=== PATIENT | female | born 1955 | race Caucasian/White ===

== ENCOUNTER 2019-10-05 05:19 | Observation (INO) | payer SELFPAY ==
[2014-07-02 09:27] VITALS: BMI 29.9
[2019-10-05] VITALS (10 sets, daily range): BP systolic 129–138; BP diastolic 70–73; PULSE 75–95; RESP 15–18; TEMP 36.9–37.3; O2SAT 96–98; BMI 26.0
--- NOTE | 2019-10-05 05:22 | HP.PCM_ITS ---
Problem List (1) Back pain Status: Acute Qualifiers: Back pain location: thoracic back pain Chronicity: acute Back pain laterality: midline Qualified Code(s): M54.6 - Pain in thoracic spine History of Present Illness Date of Admission: 10/05/19 Chief Complaint: back pain The patient is a 64 year old F developed back pain this past Monday. Not associated with any particular activity nor injury. Back pain was in her upper back and did not radiate. States that it would get worse when she would exert herself. Denied any chest pain. Earlier this morning, patient developed worsening of her back pain but was associated with chills, paresthesias in her feet and just not feeling well. Patient has had back pain before related with vertebral fractures due to her osteopenia but this does not feel like that. She went to an outside hospital and was evaluated. Patient on Monday, underwent a colonoscopy with removal of polyps. She did have an abdomen and pelvis CT that was negative for any perforation. The ER doctor informed me that the heart score was 4. Patient did receive aspirin at the outside facility. [] Past Medical History Medical History: Medical History (Last Updated 10/05/19 @ 05:24 by Karlos Alcantara DO) Osteopenia M85.80 Allergies levofloxacin [From Levaquin] Allergy (Verified 07/02/14 09:34) Hives meperidine HCl [From Demerol] Allergy (Verified 07/02/14 09:34) Vomiting Home Medications: Ambulatory Orders Medication Instructions Recorded Omeprazole 20 mg PO DAILY 07/02/14 Lives: Spouse/ Significant Other Smoking Status: Never smoker Tobacco Use: Non-smoker Alcohol: None Drugs: None - *Family History Paternal History Items: Heart Disease Review of Systems Constitutional: Reports: Chills. Denies: Anorexia, Fever, Malaise, Weakness Eyes: Denies: Blurred vision, Double vision HEENT: Denies: Head Aches, Sinus Congestion, Sinus Drainage Cardiovascular: Denies: Chest Pain, Palpitations Respiratory: Denies: Cough, Shortness of breath at rest, Sputum production Gastrointestinal: Denies: Abdominal Pain, Nausea, Vomiting Genitourinary: Denies: Dysuria Musculoskeletal: Denies: Joint Pain, Joint Tenderness Skin: Reports: Rash - Had a rash earlier this week related with a patch that she had had on her back for when she underwent a colonoscopy.. Denies: Dryness Neurological: Denies: Numbness, Tingling, Focal weakness Psychiatric: Denies: Anxiety, Depression Endocrine: Denies: Change in Body Habitus, Heat/ Cold Intolerance Hematologic/ Lymphatic: Denies: Easy Bruising, Easy Bleeding, Hx of blood clot Comment: All review systems are otherwise negative except for as mentioned above and in the HPI. VTE Information - Inpt Only VTE Present on Admission: No VTE Mechan Device Prophylaxis: None VTE Pharm Prophylaxis ordered?: No Reason prophylaxis not ordered:: Procedure Not Indicated Patient Problems: Active and Suspected Problems (Last Updated 10/05/19 @ 05:24 by Karlos Alcantara DO) Back pain (Acute) - Physical Exam Vitals/I&O's: Weight: 60.5 kg Body Mass Index (BMI) 26.0 Finger Stick Blood Glucose 102 General: Alert, Cooperative, No apparent distress, Well developed, Well zay shed HEENT: Atraumatic, Normocephalic Oral: Moist Mucosa, No Gingival or Mucosal Lesions/ Ulcerations Neck: No Nodes, Trachea Midline Lungs: Clear to auscultation, Normal air movement, No rhonchi, No wheeze, No rales Cardiovascular: Regular rate, Regular Rhythm, Normal S1, Normal S2, No murmurs Abdomen: Bowel Sounds Present, Soft, Non Tender, Non-Distended, No Hepato- splenomegaly Extremities: No edema, No Calf Tenderness Skin: No rashes, No breakdown Musculoskeletal: No Muscle Wasting, - - Reproducible midline tenderness along the mid thoracic region but also laterally over to the left. Psych/Mental Status: Normal Affect, Appropriate Labs: BMP: Sodium 144, potassium 3.5, creatinine 0.7. Magnesium 1.7. Troponin 0 0.02 which is within the normal limits of [facility]. CBC: White count 10.4, hemoglobin 1.9, platelets 245 EKG personally reviewed and showed normal sinus rhythm with out any acute changes. CT abdomen pelvis was unremarkable Chest x-ray personally reviewed and showed normal airways. No infiltrate no pulmonary edema. No pneumothorax Assessment/Plan All Active Problems (Last Updated 10/05/19 @ 05:24 by Karlos Alcantara DO) Back pain (Acute) 1. Back pain * May be musculoskeletal, however she did have some atypical symptoms with it getting worse with exertion and the chills and diaphoresis that she had. Additionally patient's blood pressure was very high when she had checked it during this episode at 180/80. * My calculated heart score is 3 which does not suggest admission however the patient has been transferred here for this to be a cardiac evaluation so I will commence with a stress test. I informed the patient that if the stress test cannot be performed today I do not feel it necessary for her to stay until Monday to get that done unless something happens in the interim based on her symptoms or if her troponins become elevated. * We will check a thoracic spine x-ray to see if there is any evidence of a compression fracture even her history of previous vertebral fractures and osteopenia. * Will continue with aspirin * Cycle troponins and check a lipid panel 2. VTE prophylaxis: Not indicated as patient is low risk given the observation status. Code Visit OBSV E&M: 80293 Initial observation care L2
--- NOTE | 2019-10-05 05:47 | RAD_ITS ---
STUDY: X-RAY - THORACIC SPINE REASON FOR EXAM: Female, 64 years old. Upper back pain. TECHNIQUE: 3 view(s) of the thoracic spine were obtained. COMPARISON: None. FINDINGS: Normal kyphosis of the thoracic spine. There is no substantial scoliosis. There is demineralization of the thoracic spine with endplate spondylosis. There is multilevel disc space narrowing of the thoracic spine. No acute fracture. The soft tissue structures are unremarkable. RAD/Thoracic Spine 3 Views IMPRESSION: Diffuse osteopenia along with mild degenerative disease as described above. No acute fracture or subluxation. Electronically Signed: Justina Birmingham MD at 7:23 EST , Service support ,
[2019-10-05] MEDS: 0.9% Saline Lock 10 ML Syringe IV (08:23)
[2019-10-05] MEDS: Ondansetron 4 MG/2 ML Vial IV (08:23)
[2019-10-05] MEDS: Aspirin E.C. 81 MG Tablet PO (08:23)
[2019-10-05] MEDS: Pantoprazole Sodium 20 MG Tablet PO (08:23)
--- NOTE | 2019-10-05 10:34 | STRESSREP ---
Stress Test Report Pharmacologic myocardial perfusion stress test. 64-year-old lady with a history of atypical chest pain. Stress protocol: Resting EKG demonstrates normal sinus rhythm with a rate of 81 bpm normal intervals are noted. The resting blood pressure is 148/62 mmHg. 0.4 mg of regadenoson was infused per usual protocol. Continuous paid search analyst was performed. Patient maintained sinus rhythm throughout the recording. At rest there were no ST or T wave changes noted suggest abnormal flow reserve. The maximum heart rate attained was 129 bpm which was 82% of maximum predicted heart rate the maximum workload was [address] or T wave changes were noted. Myocardial perfusion protocol. 12.0 mCi of technetium 99m sestamibi was injected at rest. 0.4 mg of adenosine was infused per usual protocol peak infusion 35.8 mCi of technetium 99m sestamibi was injected stress images were obtained stress and rest images were reconstructed and compared in the short axis vertical and horizontal long axis. Gated images were also obtained per Perfusion SPECT analysis: Review of the stress images demonstrate normal uptake of tracer noted in all areas of myocardium the resting images similar demonstrate normal uptake of tracer noted in all areas of the myocardium. No areas of reversibility are noted suggest ischemia. No previous infarct is noted. Gated SPECT analysis: The gated ejection fraction is 62%. Conclusion: Normal pharmacologic myocardial perfusion stress test. Preserved ejection fraction.
[2019-10-05 10:48] LABS: D-Dimer Quantitative (DVT/PE) 0.68 FEU/ug/m (0.27-0.49)
--- NOTE | 2019-10-05 11:03 | CT_ITS ---
STUDY: CT THORACIC SPINE WITHOUT CONTRAST REASON FOR EXAM: Female, 64 years old. Back pain RADIATION DOSAGE (If Supplied By Facility): CTDIvol = ( 18.77 ) mGy, DLP = ( 638.95 ) mGycm TECHNIQUE: The patient was scanned in a multi detector CT scanner. High resolution imaging was performed. Images were obtained through the thoracic spine. Sagittal and coronal images were reconstructed. Individualized dose optimization techniques were used for this CT. COMPARISON: None available. FINDINGS: There is no evidence of fracture or dislocation in the thoracic spine. The vertebral body heights are well-maintained. There are mild degenerative changes with disc space narrowing and anterior osteophytes. This is most pronounced at T7/T8 T8/T9 and T9/T10. The visualized paraspinal soft tissues are within normal limits. CT/Spine Thoracic without Contras IMPRESSION: No fracture or dislocation in the thoracic spine. Mild degenerative change. Electronically Signed: Hill Jara, at 13:30 EST Tel , Service support ,
--- NOTE | 2019-10-05 12:14 | PCM.PN.BLA ---
Progress Note Patient was directly admitted from outside facility for mid back pain. There was no clear etiology identified. Patient underwent recent colonoscopy and upper EGD. CT abdomen and pelvis with IV contrast done at the outside facility this morning at around 2 AM and showed no acute findings. Pain is atypical, no underlying trauma or mechanical fall. Thoracic spine x-ray showed no acute fractures or dislocations. Her vital signs are stable. Routine blood work was unremarkable. EKG showed no acute ischemic changes. Troponin was minimally elevated at 0.07 this morning. It was normal at the outside facility. She underwent nuclear stress test this morning and that showed no evidence of stress-induced myocardial ischemia. CT scan lumbar spine done. D-dimer was elevated but CTA chest cannot be done because patient received IV contrast at 2 AM this morning. Plan: IV fluids, Mucomyst twice daily, CTA chest tonight at 10 PM, repeat BMP tomorrow morning, awaiting CT thoracic spine report. STROKE Vital Signs/Narrative: Vital Signs Temp Pulse Resp BP Pulse Ox 10/05/19 11:03 80 10/05/19 10:14 98.5 F 91 16 138/70 H 98
[2019-10-05] MEDS: 0.9% Normal Saline 1,000 ML 100 ML IV ×2 (12:42→21:37)
[2019-10-05] MEDS: Acetylcysteine (Mucomyst Oral) 20% SOLN 1200 MG PO ×2 (13:25→21:35)
--- NOTE | 2019-10-05 15:50 | EKG12_ITS ---
Test Reason : CP ADMISSION Blood Pressure : / mmHG Vent. Rate : 084 BPM Atrial Rate : 084 BPM P-R Int : 166 ms QRS Dur : 072 ms QT Int : 364 ms P-R-T Axes : 056 017 042 degrees QTc Int : 430 ms Normal sinus rhythm Normal ECG When compared with ECG of 02-JUL-2014 09:27, Premature supraventricular complexes are no longer Present Vent. rate has decreased BY [address] elevation now present in Inferior leads ST elevation has replaced ST depression in Lateral leads Confirmed by FRANCISCO JAVIER HARP ([id number]), marketing editor LES MCKENNA ([id number]) on 10/15/2019 10:13:46 AM Referred By: MILTON Confirmed By:FRANCISCO JAVIER HARP
[2019-10-06 02:59] VITALS: PULSE 79
[2019-10-06 03:40] VITALS: BP 104/55; PULSE 80; RESP 18; TEMP 36.9; O2SAT 95
[2019-10-06 06:07] LABS: Absolute Lymphocyte Count 2.14 X10^3/uL (0.83-4.51); Basophil# 0.03 X10^3/uL; Basophil% 0.5 % (0-1); Eosinophils% 3.5 % (0-5); Hematocrit 37.6 % (37-47); Hemoglobin 11.6 g/dL (12.0-15.0); Lymphocyte # 2.14 X10^3/ul (4.0); Mean Corp Hgb Conc 30.9 g/dL (32-36); Mean Corpuscular Hgb 26.8 pg (27.0-32.0); Mean Corpuscular Volume 86.8 fL (81-99); Mean Platelet Vol. 9.5 fl (6.2-12.0); Monocyte# 0.43 X10^3/uL; Monocyte% 7.4 % (0-10); NRBC Flagged by Analyzer 0 % (0-5); Neutrophil # 2.98 X10^3/uL (2.7-7.7); Neutrophil % 51.4 % (47-70); Platelet Count 229 K/mm3 (150-450); RBC Distribution Width CV 13.2 % (11.6-14.6); RBC Distribution Width SD 42.4 fl (35.1-43.9); Red Blood Count 4.33 M/mm3 (4.2-5.4); White Blood Count 5.8 K/mm3 (4.4-11.0)
[2019-10-06 06:23] LABS: Anion Gap 7 (5-15); BUN 9 mg/dL (7-18); BUN/Creat Ratio 12.1 RATIO (10-20); Calcium,Total 8.2 mg/dL (8.5-10.1); Chloride 111 mmol/L (98-107); Creatinine, Serum 0.74 mg/dL (0.55-1.02); EST Glomerular Filtration Rate 84 mL/min (>60); Est Glom Filt Rate - Afr Amer 101 mL/min (>60); Estimated Creatinine Clearance 55.17 ml/min; Glucose 97 mg/dL (74-106); Sodium Level 143 mmol/L (136-145)
[2019-10-06 06:56] VITALS: PULSE 74
[2019-10-06] MEDS: Aspirin E.C. 81 MG Tablet PO (07:34)
[2019-10-06 07:38] LABS: AST(SGOT) 13 U/L (15-37); Alanine Aminotransfer ALT/SGPT 14 U/L (13-56); Albumin, Serum 2.7 g/dL (3.2-5.0); Alkaline Phosphatase 53 U/L (45-117); Bilirubin, Direct 0.07 mg/dL (0.00-0.30); Globulin 3.4 g/dL (2.2-4.2); Lipase 37 U/L (73-393); Protein, Total 6.1 g/dL (6.4-8.2)
--- NOTE | 2019-10-06 08:16 | DCINST_ITS ---
- Discharge Diagnoses Current Active Problems: Current Active and Chronic Problems (Last Updated 10/05/19 @ 05:24 by Karlos Alcantara DO) Back pain (Acute) You will use the following diet at home:: Regular Your food should be the consistency of: Regular Discharge Activity: Return to Normal Activity Weight Bearing Status: Full weight bearing Call your doctor if you observe: Fever of 101 or Higher, Shortness of breath, D izziness, Fainting spells, Chest pain, Increased palpitations (irregular heartbeat), Uncontrolled pain Allergies/Adverse Reactions: Allergies levofloxacin [From Levaquin] Allergy (Verified 07/02/14 09:34) Hives meperidine HCl [From Demerol] Allergy (Verified 07/02/14 09:34) Vomiting Medications to take at Discharge Omeprazole 20 mg PO DAILY 07/02/14 Polyethylene Glycol 3350 [Miralax] 17 gm PO DAILY 10/05/19 Primary Care Physician: Fransisca Jones PA [Primary Care Provider] - Please follow up with your Primary Care Physician in: 2-4 weeks. Test Results: Test results from this visit will be discussed in further detail at your follow- up appointment, if applicable.
[2019-10-06 09:05] VITALS: BP 137/68; PULSE 79; RESP 16; TEMP 37.1; O2SAT 98
[2019-10-06] MEDS: Pantoprazole Sodium 20 MG Tablet PO (09:11)
--- NOTE | 2019-10-06 11:03 | PCM.DC.SUM ---
Discharge Date and Diagnosis Date of Admission: 10/05/19 Date of Discharge: 10/06/19 - Primary Discharge Diagnosis #1 atypical mid back pain, unclear etiology. #2 minimally elevated troponin, no clear etiology. #3 elevated d-dimer, PE and dissection ruled out. Hospital Course and Treatment Imaging Results: 10/06/19 22:00 CTA Chest W/WO Contrast [CT] Routine Clinical Impression(s) from Imaging Studies Thoracic Spine X-Ray 10/05/19 05:47 IMPRESSION: Diffuse osteopenia along with mild degenerative disease as described above. No acute fracture or subluxation. Electronically Signed: Justina Birmingham MD at 7:23 EST , Service support , Thoracic Spine CT 10/05/19 11:03 IMPRESSION: No fracture or dislocation in the thoracic spine. Mild degenerative change. Electronically Signed: Hill Jara, at 13:30 EST Tel , Service support , Chest CTA 10/06/19 22:00 IMPRESSION: Negative CTA chest examination, without a demonstrated pulmonary embolism or arterial dissection. Bilateral basilar atelectasis as described above. Incompletely distended gallbladder with nonspecific thickening of the wall versus acute cholecystitis. Clinical correlation recommended. If indicated, right upper quadrant ultrasound May further characterize this region. Electronically Signed: Justina Birmingham MD at 1:02 EST , Service support , Operations: None Procedures: EKG, Stress test Summary of Care Provided: Patient seen and examined on the day of discharge and appeared to be stable to be discharged home. Her mid back pain is improving. No other complaints. Her vital signs are stable. The patient is a 64 year old F patient directly admitted from outside facility for mid back pain for evaluation. The patient had a recent colonoscopy for removal of polyps 2 days before admission. She had CT scan abdomen and pelvis at the outside facility that showed no evidence of acute intra-abdominal pathology or perforation. She was sent to our hospital here for evaluation for back pain and concern for acute coronary syndrome. Her EKG revealed normal sinus rhythm without evidence of acute ischemic changes. Her troponin at the outside facility was normal and it was 0.02, 0.06 and on the first troponin in this hospital, it was minimally elevated at 0.07 and then trended down to 0.029 and 0.027. Patient denies any anterior chest pain or shortness of breath. Her other routine blood work was unremarkable. Her vital signs remained stable throughout admission. D-dimer was elevated for which CTA chest done and showed no PE or dissection. CTA chest revealed incompletely distended gallbladder but patient denied any right upper quadrant abdominal pain and her LFT as well as lipase were normal. Thoracic spine CT scan done and showed no evidence of acute fractures or dislocations. There was no specific etiology identified for this mid back pain. Could be due to musculoskeletal pain. ACS, PE and dissection ruled out. Patient discharged home in a stable medical condition, discharged on her previous home medications without any changes, recommended to take Tylenol or Aleve as needed for pain, follow-up with PCP in 2 to 4 weeks. - Physical Exam Vitals/I&O's: Vital Signs Temp Pulse Resp BP Pulse Ox 98.7 F 79 16 137/68 H 98 10/06/19 09:05 10/06/19 09:05 10/06/19 09:05 10/06/19 09:05 10/06/19 09:05 Oxygen Delivery Method Room Air Weight: 133 lb 6.075 oz Body Mass Index (BMI) 26.0 Finger Stick Blood Glucose 102 Intake and Output for Last 24 Hours 10/04/19 10/05/19 10/06/19 23:59 23:59 23:59 Intake Total 2350 / 2530 1180 / 1180 Balance 2350 / 2530 1180 / 1180 General: Alert, Oriented x3, Cooperative, No apparent distress HEENT: Atraumatic, PERRLA, EOMI, Normocephalic Oral: Moist Mucosa, No Gingival or Mucosal Lesions/ Ulcerations Neck: Supple, No JVD, Negative Carotid Bruits, Trachea Midline, Thyroid Normal Size and Texture Lungs: Clear to auscultation, Normal air movement, No rhonchi, No wheeze, No rales Cardiovascular: Regular rate, Regular Rhythm, Normal S1, Normal S2, PMI Normal Abdomen: Bowel Sounds Present, Soft, Non Tender, Non-Distended, No Hepato-splenomegaly Extremities: No clubbing, No cyanosis, No edema Skin: No rashes, No breakdown Lymphatic: No Cervical, Supraclavicular, or Inguinal Adenopathy Neurological: Cranial nerves II-XII grossly intact, Motor Exam 5/5 strength throughout Psych/Mental Status: Normal Affect, Appropriate Laboratory Results 10/05/19 12:00: Troponin I 0.027 10/06/19 05:09: WBC 5.8, RBC 4.33, Hgb 11.6 L, Hct 37.6, MCV 86.8, MCH 26.8 L, MCHC 30.9 L, RDW Std Deviation 42.4, RDW Coeff of Ricco 13.2, Plt Count 229, MPV 9.5, Immature Gran % (Auto) 0.200, Neut % (Auto) 51.4, Lymph % (Auto) 37.0, [place] % (Auto) 7.4, Eos % (Auto) 3.5, Baso % (Auto) 0.5, Absolute Neuts (auto) 3.0, Absolute Lymphs (auto) 2.14, Nucleated RBC % 0 10/06/19 05:09: Sodium 143, Potassium 4.0, Chloride 111 H, Carbon Dioxide 25.0, Anion Gap 7, BUN 9, Creatinine 0.74, Estim Creat Clear Calc 55.17, Est GFR (MDRD) Af Amer 101, Est GFR (MDRD) Non-Af 84, BUN/Creatinine Ratio 12.1, Glucose 97, Calcium 8.2 L 10/06/19 05:09: Total Bilirubin 0.30, Direct Bilirubin 0.07, AST 13 L, ALT 14, Alkaline Phosphatase 53, Total Protein 6.1 L, Albumin 2.7 L, Globulin 3.4, Lipase 37 L Discharge Activity: Return to Normal Activity Weight Bearing Status: Full weight bearing Call your doctor if you observe: Fever of 101 or Higher, Shortness of breath, Dizziness, Fainting spells, Chest pain, Increased palpitations (irregular heartbeat), Uncontrolled pain Home Medications: Medications to take at Discharge Omeprazole 20 mg PO DAILY 07/02/14 Polyethylene Glycol 3350 [Miralax] 17 gm PO DAILY 10/05/19 Primary Care Physician: Fransisca Jones PA [Primary Care Provider] - Please follow up with your Primary Care Physician in: 2-4 weeks. Disposition: Home Minutes spent on discharge:: 28 Patient Condition:: Stable Medical Necessity - Tobacco Use Smoking Status: Never smoker Tobacco Use: Non-smoker Meaningful Use Info Meaningful Use Diagnoses (Choose all that apply): None applicable Code Visit OBSV E&M: 14464 Observation care discharge
--- NOTE | 2019-10-06 22:00 | CT_ITS ---
STUDY: CTA CHEST REASON FOR EXAM: Female, 64 years old. Mid back pain elevated d-dimer. RADIATION DOSAGE (If Supplied By Facility): CTDIvol = ( 10.87 ) mGy, DLP = ( 297.88 ) mGycm TECHNIQUE: The examination was performed with the intravenous administration of IV 75mL Isovue-370 75ML. Post-processing of the angiographic images was performed, with multiplanar reformation and 3D reconstruction. Individualized dose optimization techniques were used for this CT. COMPARISON: None. FINDINGS: Normal enhancement of the main pulmonary artery and right and left pulmonary arteries. Normal enhancement of the bilateral peripheral pulmonary arteries. There is no demonstrated pulmonary embolism. There is mild atherosclerotic calcification of the aortic arch with tortuosity. There is no demonstrated aortic dissection. Normal heart and pericardium. Normal mediastinum. Normal hilar regions. Normal visualized trachea and bronchi. The lungs are well expanded. There is subtle groundglass opacity with linear density at the level of the right middle lobe and posterior subpleural region of the bilateral lower lobes, most compatible with atelectasis. Remainder of the lung ahumada are clear. No pleural abnormality. Normal chest wall structures. There are degenerative changes of thoracic spine. Upper abdomen: Incompletely distended gallbladder with possible thickening of the wall, cannot exclude the cholecystitis. CT/CTA Chest W/WO Contrast IMPRESSION: Negative CTA chest examination, without a demonstrated pulmonary embolism or arterial dissection. Bilateral basilar atelectasis as described above. Incompletely distended gallbladder with nonspecific thickening of the wall versus acute cholecystitis. Clinical correlation recommended. If indicated, right upper quadrant ultrasound May further characterize this region. Electronically Signed: Justina Birmingham MD at 1:02 EST , Service support ,
== END 2019-10-06 08:16 | disposition home or self-care (01) ==
PROVIDERS: Family Provider Physician Assistant; PCP Physician Assistant; Visit Provider Hospitalist
DX: M54.6 Pain in thoracic spine (principal); I70.0 Atherosclerosis of aorta; M85.80 Other specified disorders of bone density and structure, unspecified site; R79.89 Other specified abnormal findings of blood chemistry
CPT/HCPCS: 36415; 71275; 72072; 72128; 78452; 80048; 80076; 83690; 84484; 85025; 85379; 93005; 93017; 96361; 96374; 99218; A9500; J7030; Q9967; A4216; G0378; G0379; J2405; J2785

== ENCOUNTER 2025-05-19 11:01 | Emergency (ER) | payer MEDICARE, BC, SELFPAY ==
[2025-05-19 11:02] VITALS: BP 188/92; PULSE 91; RESP 18; TEMP 36.4; O2SAT 98
[2025-05-19 11:10] VITALS: BMI 26.4
--- NOTE | 2025-05-19 11:14 | CT_ITS ---
PROCEDURE: ABDOMEN/PELVIS W IV CONT ONLY 05/19/2025 REASON FOR EXAM: RLQ PAIN, TRAUMA TECHNIQUE: ABDOMEN/PELVIS W IV CONT ONLY Coronal and Sagittal reconstruction series were provided. CONTRAST: Isovue 370 VOLUME: 100 mL One or more dose reduction techniques were used (e.g., Automated exposure control, adjustment of the mA and/or kV according to patient size, use of iterative reconstruction technique. RADIATION DOSE SUMMARY: CTDlvol: 27.22 mGy DLP: 830.29 mGycm COMPARISON: None FINDINGS: Lung bases: Mild dependent atelectasis, there is a tiny 2 mm noncalcified nodule in the right middle lobe on axial image 1. No specific follow-up needed Liver: Normal size. No mass. Gallbladder: Unremarkable Spleen: Normal size. Pancreas: Normal size without evidence of mass surrounding inflammation or ductal dilation. Adrenals: Unremarkable Kidneys: Normal renal sizes. No hydronephrosis. Bladder: Unremarkable Reproductive Organs: Uterus is present, the endometrium can not be accurately evaluated with CT. There are enhancing dilated serpiginous vessels around the periphery of the uterus suggesting pelvic congestion. Bowel: No evidence of ileus or obstruction. Retained stool noted in the colon. Sigmoid diverticulosis noted without CT evidence of acute diverticulitis Appendix: Normal appendix seen on coronal recon image 45 Peripheral calcifications in the abdominal aorta without aneurysm. IVC is unremarkable. No free intraperitoneal fluid, air, or suspicious adenopathy. Bones: Bony structures show degenerative change CT/Abdomen/Pelvis W IV Cont ONLY IMPRESSION: No suspicious solid organ abnormalities Uterus is present, the endometrium can not be accurately evaluated with CT. En hancing serpiginous vessels around the periphery of the uterus suggest pelvic congestion No free intraperitoneal fluid, air, or suspicious adenopathy, normal appendix v isualized Tiny right middle lobe nodule, no specific follow-up needed Reading Location: [id number]
[2025-05-19] MEDS: Metoclopramide 10 MG/2 ML Vial 5 MG IV (11:31)
[2025-05-19] MEDS: Ketorolac 15 MG/ML Vial IV (11:31)
[2025-05-19] MEDS: 0.9% Normal Saline (1000mL) 1,000 ML 1000 ML IV (11:32)
--- NOTE | 2025-05-19 11:45 | ED.VIS.FALL ---
HPI HPI - Fall History of Present Illness Chief Complaint: Fall Narrative Narrative: Chief complaint and HPI: Mechanical fall. 70-year-old female with past medical history of HTN, GERD, HLD presents for evaluation after mechanical fall. Patient states on Monday she was outside in which she stepped onto an outside stump. States that her foot slipped out from under her and she landed on her right side. Did not hit her head. No LOC. Not on blood thinners. Patient states since the fall she has had some right anterior chest pain as well as right lower extremity pain. Triage note states right shoulder as well as hip pain. However she denies actual pain in the joints. She denies any fever, chills, neck pain, headache, neurological deficits, weakness, numbness/tingling, chest pain, shortness of breath, nausea, vomiting, dysuria, diarrhea. Has taken Tylenol for pain. Review of systems: See HPI Medications: As listed on the chart Allergies: As listed on the chart PFSH: Per chart Vital signs: As listed on the chart. Reviewed. Physical exam: Gen: A&O x3, NAD Head: Normocephalic, atraumatic Eyes: No sclera icterus, conjunctiva clear, PERRL, EOMI ENT: Moist mucous membranes, face atraumatic Neck: Trachea midline, No JVD, Nontender, full range of motion CV: RRR, no murmurs, patient has mild tenderness to palpation of the anterior left lateral ribs at approximately rib 3/4. No crepitus. No cellulitis or ecchymosis. Resp: Lungs CTA BL, no w/r/c GI: Abd soft, non-distended, mild tenderness to palpation in the left lower quadrant-no ecchymosis, no r/r/g : No CVA tenderness Musc: Full ROM of all the extremities and joints including the right shoulder and hip, no deformity, no spinal TTP, no felipe step-offs, DP/PT pulses +2 bilaterally, radial pulses +2 bilaterally Skin: Warm, dry, intact Neuro: Alert, oriented, grossly intact, sensation intact, GCS 15 Psych: Cooperative, appropriate mood and affect [facility] Medical History Vertigo Palpitations Hypertension Vitamin deficiency GERD (gastroesophageal reflux disease) Pneumonia IBS (irritable bowel syndrome) Hypocalcemia Headache, migraine Gastrointestinal problem Bone fracture Osteopenia Home Medications ?Medication ?Instructions ?Recorded ?Last Taken ?Type cholecalciferol (vitamin D3) 100 100 mcg PO QDAY 12/17/24 05/18/25 History mcg (4,000 unit) tablet cranberry 500 mg capsule 500 mg PO BID 12/17/24 05/18/25 History diazepam 2 mg tablet 2 mg PO Q8 PRN anxiety 12/17/24 05/19/25 History lysine 500 mg tablet 500 mg PO QDAY 12/17/24 05/18/25 History magnesium 250 mg tablet 250 mg PO BID 12/17/24 05/18/25 History quercetin 500 mg capsule 500 mg PO QDAY 12/17/24 05/18/25 History zinc gluconate 50 mg tablet 50 mg PO QDAY 12/17/24 05/18/25 History calcium carbonate 1,000 mg PO QDAY 04/11/25 05/18/25 History metoprolol succinate 25 mg 12.5 mg PO BID 04/11/25 05/19/25 History tablet,extended release 24 hr omeprazole 20 mg capsule,delayed 40 mg PO QDAY 04/11/25 05/19/25 History release phytonadione (vitamin K1) 100 mcg 100 mcg PO DAILY 05/19/25 05/18/25 History tablet Allergy/AdvReac Type Severity Reaction Status Date / Time levofloxacin (From Levaquin) Allergy Hives Verified 05/19/25 11:01 meperidine HCl (From Demerol) Allergy Vomiting Verified 05/19/25 11:01 ondansetron (From Zofran) AdvReac Nausea Verified 05/19/25 11:01 Family History Sister Anemia Asthma Colon cancer, Onset Age: 65 Hypertension Kidney disease Son Colon cancer, Onset Age: 27 Father Myocardial infarction, Onset Age: 63 Surgical History History of colonoscopy History of esophagogastroduodenoscopy (EGD) Social History Smoking Status: Never smoker alcohol intake: current substance use type: does not use what type of physical activity do you participate in: none EXAM Physical Exam Const Vital Signs: 05/19/25 11:02 05/19/25 11:11 05/19/25 13:01 Temperature 97.5 F L Temperature Source Temporal Pulse Rate 91 88 Respiratory Rate 18 16 Respiratory Effort Normal Respiratory Depth Normal Respiratory Pattern Normal Blood Pressure 188/92 H Blood Pressure Mean 124 Pulse Ox 98 Oxygen Delivery Method Room Air Room Air 05/19/25 13:58 Temperature 97.5 F L Temperature Source Pulse Rate 88 Respiratory Rate 16 Respiratory Effort Respiratory Depth Respiratory Pattern Blood Pressure 188/92 H Blood Pressure Mean 124 Pulse Ox 98 Oxygen Delivery Method MDM MDM MDM Narrative Medical decision making narrative: 70-year-old female with past medical history of HTN, GERD, HLD presents for evaluation after mechanical fall. Mechanical fall occurred on Monday. Complains of right anterior chest pain as well as left lower quadrant abdominal pain. See physical exam findings. Differential diagnosis includes but is not limited to myofascial spasm, rib contusion, rib fracture, abdominal contusion, intra-abdominal hematoma. Toradol and Reglan ordered. NS bolus. Basic labs ordered with x-rays of the right ribs and CT abdomen pelvis. Chest x-ray was personally viewed interpreted by la, ED physician. No fracture or dislocation. No pneumothorax. No pneumonia, effusion. Radiology in agreement. CBC without leukocytosis or anemia. Platelets unremarkable. BMP unremarkable. CT abdomen pelvis shows no acute traumatic injury. She has findings around the uterus, suggestive of pelvic congestion. She has a tiny right middle lobe nodule no follow-up needed per radiology. At this point in time, no clear etiology to explain patient's symptoms. Although I suspect they are secondary to contusions. Follow-up with primary care physician. Tylenol as needed for pain. Return precautions explained. She was made aware of her pelvic congestion and told to follow-up with her EXCHANGE ADMINISTRATOR for this and she confirmed understanding. Impression: 1. Right anterior rib contusion 2. Right abdominal contusion 3. Mechanical fall 4. Pelvic congestion, needs further workup outpatient Lab Data Labs: Laboratory Results - last 24 hr 05/19/25 12:25 WBC 8.5 RBC 4.73 Hgb 12.7 Hct 41.1 MCV 86.9 MCH 26.8 L MCHC 30.9 L RDW Std Deviation 44.2 H RDW Coeff of Ricco 13.8 Plt Count 205 MPV 9.3 Immature Gran % (Auto) 0.400 Neut % (Auto) 75.5 H Lymph % (Auto) 15.5 L [place] % (Auto) 7.6 Eos % (Auto) 0.5 Baso % (Auto) 0.5 Absolute Neuts (auto) 6.5 Absolute Lymphs (auto) 1.32 Nucleated RBC % 0 Sodium 138 Potassium 3.9 Chloride 103 Carbon Dioxide 21.9 Anion Gap 13 BUN 10 Creatinine 0.74 Estim Creat Clear Calc 53.53 Est GFR (MDRD) Non-Af 87 BUN/Creatinine Ratio 13.0 Glucose 91 Calcium 9.0 Radiography Diagnostic Testing: Clinical Impression(s) from Imaging Studies Abdomen/Pelvis CT 05/19/25 11:14 IMPRESSION: No suspicious solid organ abnormalities Uterus is present, the endometrium can not be accurately evaluated with CT. Enhancing serpiginous vessels around the periphery of the uterus suggest pelvic congestion No free intraperitoneal fluid, air, or suspicious adenopathy, normal appendix visualized Tiny right middle lobe nodule, no specific follow-up needed Reading Location: [facility] Ribs w/Chest X-Ray 05/19/25 11:55 IMPRESSION: No acute pulmonary process, no demonstrated rib fracture Reading Location: [id number] Discharge Plan Triage Chief Complaint: Fall ED Provider: Junaid Coleman Dx/Rx/DC Orders Clinical Impression: Contusion of rib on right side, Abdominal contusion Instructions: Bruises (Contusions), ED Soft Tissue Contusion, ED Chest Wall Contusion, ED Fall Prevention Prescriptions: No Action diazepam 2 mg tablet 2 mg PO Q8 PRN (Reason: anxiety) magnesium 250 mg tablet 250 mg PO BID lysine 500 mg tablet 500 mg PO QDAY zinc gluconate 50 mg tablet 50 mg PO QDAY quercetin 500 mg capsule 500 mg PO QDAY cranberry 500 mg capsule 500 mg PO BID Rx Instructions: administer with meals cholecalciferol (vitamin D3) 100 mcg (4,000 unit) tablet 100 mcg PO QDAY calcium carbonate 500 mg calcium (1,250 mg) tablet 1,000 mg PO QDAY omeprazole 20 mg capsule,delayed release(DR/EC) 40 mg PO QDAY metoprolol succinate 25 mg tablet extended release 24 hr 12.5 mg PO BID phytonadione (vitamin K1) 100 mcg tablet 100 mcg PO DAILY Patient Comments: pt not sure of strength, thinks it's 100mg Primary Care Provider: Giselle Styles Referrals: Giselle Styles, KATIE [Primary Care Provider] - 3-5 Days Activity Restrictions/Additional Instructions: Follow-up with primary care physician. Return back to the ED if symptoms change or worsen. Tylenol as needed for pain as you cannot take ibuprofen. Your CT abdomen pelvis showed findings concerning for pelvic congestion. Follow-up with your EXCHANGE ADMINISTRATOR. Print Language: Grenadian Disposition Disposition: Home, Self Care Discharge Date/Time: 05/19/25 13:58
--- NOTE | 2025-05-19 11:55 | RAD_ITS ---
PROCEDURE: RIBS UNI MIN 3V W/PA CHEST 05/19/2025 REASON FOR EXAM: PAIN, TRAUMA TECHNIQUE: RIBS UNI MIN 3V W/PA CHEST four views obtained COMPARISON: CT chest from 2019 FINDINGS: Findings: No acute pulmonary process Other: No demonstrated rib fracture or pleural thickening, no pneumothorax. RAD/Ribs Uni Min 3V w/PA Chest IMPRESSION: No acute pulmonary process, no demonstrated rib fracture Reading Location: [id number]
[2025-05-19 12:37] LABS: Absolute Lymphocyte Count 1.32 X10^3/uL (0.83-4.51); Absolute Neutrophil Count 6.5 X10^3/uL (2.0-7.7); Basophil# 0.04 X10^3/uL; Basophil% 0.5 % (0-1); Eosinophil# 0.04 X10^3/uL; Eosinophils% 0.5 % (0-5); Hematocrit 41.1 % (37-47); Hemoglobin 12.7 g/dL (12.0-15.0); Lymphocyte # 1.32 X10^3/ul (0.83-4.51); Lymphocyte % 15.5 % (19-41); Mean Corp Hgb Conc 30.9 g/dL (32-36); Mean Corpuscular Hgb 26.8 pg (27.0-32.0); Mean Corpuscular Volume 86.9 fL (81-99); Mean Platelet Vol. 9.3 fl (6.2-12.0); Monocyte# 0.65 X10^3/uL; Monocyte% 7.6 % (0-10); NRBC Flagged by Analyzer 0 % (0-5); Neutrophil # 6.46 X10^3/uL (2.7-7.7); Neutrophil % 75.5 % (47-70); Platelet Count 205 K/mm3 (150-450); RBC Distribution Width CV 13.8 % (11.6-14.6); RBC Distribution Width SD 44.2 fl (35.1-43.9); Red Blood Count 4.73 M/mm3 (4.2-5.4); White Blood Count 8.5 K/mm3 (4.4-11.0)
[2025-05-19 13:01] VITALS: PULSE 88; RESP 16
[2025-05-19 13:09] LABS: Anion Gap 13 (5-15); BUN 10 mg/dL (4-19); Carbon Dioxide 21.9 mmol/L (21.0-32.0); Chloride 103 mmol/L (98-108); Creatinine, Serum 0.74 mg/dL (0.70-1.20); EST Glomerular Filtration Rate 87 (>60); Estimated Creatinine Clearance 53.53 ml/min (50-250); Glucose 91 mg/dL (70-99); Potassium 3.9 mmol/L (3.3-5.1); Sodium Level 138 mmol/L (133-145)
[2025-05-19 13:58] VITALS: BP 188/92; PULSE 88; RESP 16; TEMP 36.4; O2SAT 98
== END 2025-05-19 13:58 | disposition home or self-care (01) ==
PROVIDERS: Emergency Provider Surgery; PCP Clinical Nurse Specialist Adult Health; Visit Provider Surgery
DX: S20.211A Contusion of right front wall of thorax, initial encounter (principal); S30.1XXA Contusion of abdominal wall, initial encounter; W18.39XA Other fall on same level, initial encounter; N94.89 Other specified conditions associated with female genital organs and menstrual cycle
CPT/HCPCS: 71101; 74177; 80048; 85025; 96361; 96374; 96375; 99284; Q9967; A4216